=== PATIENT | male | born 1985 | race Caucasian/White ===

== ENCOUNTER 2024-06-19 12:59 | Outpatient (CLI) | payer MEDICAID, SELFPAY ==
--- NOTE | 2024-06-19 13:30 | MR_ITS ---
WS: [id number] MRA ANGIOGRAPHY [place] HISTORY: G43.711 - Chronic migraine without aura, intractable, wit... COMPARISON: None available. TECHNIQUE: 3-D MR angiography is performed of the [place]. All images are reviewed including source images. Distal vertebral and basilar arteries are intact with no significant stenosis or plaque. Posterior ce rebral arteries are normal course and caliber. Posterior communicating arteries are both patent. Intracranial portion of the internal carotid arteries are normal course and caliber. No significant a therosclerosis, stenosis or aneurysm identified. Middle and anterior cerebral arteries are both paten t with no significant disease. Anterior communicating artery is also normal. MR/MR angio head wo con [id number] IMPRESSION: Normal MRA [place].
== END 2024-06-19 13:00 | disposition home or self-care (01) ==
LOC: RAD 13:01
PROVIDERS: Visit Provider Psychiatry & Neurology Neurology
DX: G43.711 Chronic migraine without aura, intractable, with status migrainosus (principal)
CPT/HCPCS: 70544

== ENCOUNTER 2024-08-03 15:13 | Outpatient (CLI) | payer MEDICAID, SELFPAY ==
--- NOTE | 2024-08-03 15:15 | MRR_ITS ---
PROCEDURE INFORMATION: Exam: MR Head Without and With Contrast Exam date and time: 08/03/2024 3:26 PM Age: 39 years old Clinical indication: Pain; Headache; Patient HX: Lehman's, sensitivity to light, and dizziness; Additional info: G43.711 - chronic migraine without aura, intractable, wit. . . TECHNIQUE: Imaging protocol: Magnetic resonance imaging of the head without and with contrast. Contrast material: MULTIHANCE; Contrast volume: 18 ml; Contrast route: INTRAVENOUS (IV); COMPARISON: MR angio head wo con [id number] 06/19/2024 1:26 PM FINDINGS: Brain: Normal. No acute infarct. No hemorrhage. No significant white matter disease. No edema. No abnormal parenchymal enhancement. Cerebral ventricles: Normal. No ventriculomegaly. Bones: Unremarkable. Paranasal sinuses: Normal as visualized. No acute sinusitis. Mastoid air cells: Normal as visualized. No mastoid effusion. Orbital cavities: Unremarkable. Soft tissues: Unremarkable. MR/MR head wo/w con [id number] IMPRESSION: No acute findings.
--- NOTE | 2024-08-03 16:00 | MRR_ITS ---
PROCEDURE INFORMATION: Exam: MRA Neck With Contrast Exam date and time: 08/03/2024 3:50 PM Age: 39 years old Clinical indication: Pain; Headache; Patient HX: Lehman's, sensitivity to light, and dizziness; Additional info: G43.711 - chronic migraine without aura, intractable, wit. . . TECHNIQUE: Imaging protocol: Magnetic resonance angiography of the neck with contrast. Angiographic sequences such as [id number] (TOF) or Time-resolved contrast techniques were performed. Contrast material: MULTIHANCE; Contrast volume: 18 ml; Contrast route: INTRAVENOUS (IV); COMPARISON: MR angio head wo con [id number] 06/19/2024 1:26 PM FINDINGS: Right common carotid artery: No stenosis. No dissection or occlusion. Right internal carotid artery: No stenosis of the extracranial segment. No dissection or occlusion. Right external carotid artery: No stenosis. No dissection or occlusion of the origin. Right vertebral artery: No stenosis. No dissection or occlusion. Left common carotid artery: No stenosis. No dissection or occlusion. Left internal carotid artery: No stenosis of the extracranial segment. No dissection or occlusion. Left external carotid artery: No stenosis. No dissection or occlusion of the origin. Left vertebral artery: No stenosis. No dissection or occlusion. MR/MR angio neck w con* [id number] IMPRESSION: No stenosis or occlusion. REFERENCES: NASCET CRITERIA. The degree of stenosis in the cervical segment of the internal carotid artery is based on NASCET criteria. Normal is no stenosis. Mild is less than 50% stenosis. Moderate is 50-69% stenosis. Severe is 70% to 99% stenosis. Total occlusion is no detectable patent lumen.
[2024-08-03] MEDS: gadobenate dimeglumine 20 mL vial 18 ML IV (16:18)
== END 2024-08-03 15:14 | disposition home or self-care (01) ==
LOC: RAD 15:14
PROVIDERS: Visit Provider Psychiatry & Neurology Neurology
DX: G43.711 Chronic migraine without aura, intractable, with status migrainosus (principal)
CPT/HCPCS: 70548; 70553

== ENCOUNTER → 2024-08-07 16:18 | Outpatient (BNVA) | payer MEDICAID, SELFPAY | PROVIDERS: Visit Provider Psychiatry & Neurology Neurology | DX: R51.9 Headache, unspecified (principal); R41.3 Other amnesia | CPT/HCPCS: 36415; 82306; 82607; 82746; 83921; 84439; 84443; 84481; 86617 ==